=== PATIENT | female | born 1960 | race Caucasian/White ===

== ENCOUNTER 2016-09-11 00:39 | Emergency (ER) | payer OTHER ==
[2016-09-11] MEDS ORDERED: IOPAMIDOL 370 (76%) 100 ML VIAL IV ONE (00:40)
[2016-09-11 01:12] LABS: ABSOLUTE NEUTROPHIL COUNT 2.6 K/mm3 (1.8-7.7); BASO # 0.1 K/mm3 (0.0-0.2); EOS # 0.3 (0.0-0.5); EOS % 5.8 % (0.9-2.9); HEMATOCRIT 36.6 % (37.0-47.0); HEMOGLOBIN 12.2 gm/l (12.0-16.0); IMM NEUT% 0.2 % (0-1); LYMPH # 1.6 (1.0-4.8); LYMPH % 31.1 % (15-45); MEAN CELL VOLUME 91.7 fl (81.0-99.0); MEAN CORPUSCULAR HEMOGLOBIN 30.6 pg (27.0-31.0); MEAN CORPUSCULAR HGB CONC 33.3 g/dl (33.0-37.0); MONO # 0.5 (0.0-0.8); MONO % 10.4 % (4-12); NEUT % 51.5 % (43-75); PLATELET COUNT 115 K/mm3 (130-400); RED CELL DISTRIBUTION WIDTH 13.3 % (11.5-14.5)
[2016-09-11 01:33] LABS: ALB/GLOB RATIO 1.5 (>1.0); ALBUMIN 3.5 gm/dL (3.5-5.7); CALCIUM 8.8 mg/dL (8.6-10.3)
[2016-09-11] MEDS ORDERED: KETOROLAC TROMETHAMINE 15 MG/ML VIAL ONE (01:36)
[2016-09-11] MEDS ORDERED: HYDROMORPHONE HCL 0.5 MG/0.5 ML SYRINGE ONE (02:14)
--- NOTE | 2016-09-11 08:30 | RAD ---
History: Chest pain. Comparison: 02/19/2015. Technique: 2 views Findings: There is evidence of prior plate and screw fixation of the lower cervical spine. The heart size is appropriate. Linear bibasilar densities are identified suggesting atelectasis or scarring. No gross consolidation, effusion or pneumothorax is seen. The hilar and mediastinal structures are intact. Impression: 1. Minimal bibasilar atelectasis or scarring. 2. Prior plate and screw fixation of the lower cervical spine.
--- NOTE | 2016-09-11 09:07 | CT ---
CTA CHEST FOR PE COMPARISON: Chest 2 views 09/11/2016 HISTORY: Acute chest pain. Elevated d-dimer. Elevated glucose. Technique: Intravenous injection 80 mL [id number]. Using a [employer] Aquilion [address] scanner, following a CT angiogram protocol, images obtained through the thorax. Under concurrent supervision and interpretation, requiring a separate 3-D workstation, the technologist created 3-D CT angiograms. An automated dose reduction technique was used to minimize patient radiation dose. Dose information: CTDIvol (mGy): 7.70, 92.50, 8.50 DLP(mGycm): 313.30 FINDINGS: Pulmonary arteries and veins: Excellent contrast opacification. No pulmonary embolism. Aorta: Normal Heart and coronary arteries: Normal. Lungs: Normal. Trachea and bronchi: Normal. Mediastinum and aubrie: No adenopathy. Mild hiatal hernia. Pleura and pericardium: Normal. Chest wall: Normal. Spine: C6-C7 fusion with bone graft and hardware. Upper abdomen: Lobular appearance of the surface of the liver. 3-D CT angiogram: Normal. IMPRESSION: 1. CT pulmonary injury negative for pulmonary embolism. No acute abnormality in the chest. 2. Incidental findings include C6-C7 surgical fusion and evidence of cirrhosis of the liver. Preliminary report by [facility] radiologist Joanna Blanco M.D. 09/11/2016 at 03:52
== END 2016-09-11 04:44 | disposition home or self-care (01) ==
LOC: ED 00:39
DX: R07.9 Chest pain, unspecified (principal); J45.909 Unspecified asthma, uncomplicated; F17.210 Nicotine dependence, cigarettes, uncomplicated
CPT/HCPCS: 85379; 85025; 80053; 84484 ×2; 71020; 71275; 96375; 99284 ×2; 96374; 93005; J1885; Q9967; J1170